=== PATIENT | male | born 1960 | race Hispanic/Latino ===

== ENCOUNTER 2016-07-07 09:18 | Outpatient (CLI) | payer MEDICAID ==
[2016-07-07 09:44] LABS: Hematocrit 34.5 % (35.5-45.6); Hemoglobin 11.9 gm/dl (11.8-15.2); Mean Corpuscular HGB Conc 34 % (32-34); Mean Corpuscular Hemoglobin 29 pg (28-32); Mean Corpuscular Volume 84 fl (84-94); Platelet Count 231 K/mm3 (140-440); Red Blood Count 4.11 M/mm3 (3.65-5.03); Red Cell Distribution Width 13.5 % (13.2-15.2); White Blood Count 6.4 K/mm3 (4.5-11.0)
[2016-07-07 10:25] LABS: Albumin 3.2 g/dL (3.9-5); Albumin/Globulin Ratio 1.2 %; BUN/Creatinine Ratio 11.45; Bilirubin,Total 0.3 mg/dL (0.1-1.2); Calcium 7.6 mg/dL (8.4-10.2); Total Protein 5.8 g/dL (6.3-8.2)
== END 2016-07-07 09:19 | disposition home or self-care (01) ==
LOC: LAB 09:18
DX: I12.9 Hypertensive chronic kidney disease with stage 1 through stage 4 chronic kidney disease, or unspecified chronic kidney disease (principal); N18.3 Chronic kidney disease, stage 3 (moderate); E10.22 Type 1 diabetes mellitus with diabetic chronic kidney disease; R80.0 Isolated proteinuria; E78.5 Hyperlipidemia, unspecified; E87.5 Hyperkalemia
CPT/HCPCS: 36415; 80053; 82565; 82570; 82575; 83970; 84156; 85027

== ENCOUNTER 2016-08-08 08:46 | Outpatient (CLI) | payer MEDICAID ==
[2016-08-08 09:18] LABS: Hematocrit 36.4 % (35.5-45.6); Hemoglobin 12.4 gm/dl (11.8-15.2); Mean Corpuscular HGB Conc 34 % (32-34); Mean Corpuscular Hemoglobin 29 pg (28-32); Mean Corpuscular Volume 84 fl (84-94); Platelet Count 241 K/mm3 (140-440); Red Blood Count 4.33 M/mm3 (3.65-5.03); Red Cell Distribution Width 13.4 % (13.2-15.2); White Blood Count 7.2 K/mm3 (4.5-11.0)
[2016-08-08 09:32] LABS: BUN/Creatinine Ratio 11.4; Calcium 8.2 mg/dL (8.4-10.2); Chloride 99.1 mmol/L (98-107); Phosphorous 5.9 mg/dL (2.5-4.5); Potassium 5.5 mmol/L (3.6-5.0)
== END 2016-08-08 08:47 | disposition home or self-care (01) ==
LOC: LAB 08:46
DX: I12.9 Hypertensive chronic kidney disease with stage 1 through stage 4 chronic kidney disease, or unspecified chronic kidney disease (principal); N18.3 Chronic kidney disease, stage 3 (moderate); E10.22 Type 1 diabetes mellitus with diabetic chronic kidney disease; R80.0 Isolated proteinuria; I25.10 Atherosclerotic heart disease of native coronary artery without angina pectoris; E88.09 Other disorders of plasma-protein metabolism, not elsewhere classified; E87.5 Hyperkalemia; Z79.4 Long term (current) use of insulin
CPT/HCPCS: 36415; 80048; 82040; 84100; 85027

== ENCOUNTER 2016-10-06 08:08 | Outpatient (CLI) | payer MEDICAID ==
[2016-10-06] MEDS ORDERED: XYLOCAINE TOPICAL 4% TP ONE ×2 (08:30→09:12)
== END 2016-10-06 08:09 | disposition home or self-care (01) ==
LOC: WOUND 08:08
PROVIDERS: ATTEND Internal Medicine
DX: E11.621 Type 2 diabetes mellitus with foot ulcer (principal); L97.521 Non-pressure chronic ulcer of other part of left foot limited to breakdown of skin; E11.22 Type 2 diabetes mellitus with diabetic chronic kidney disease; I12.0 Hypertensive chronic kidney disease with stage 5 chronic kidney disease or end stage renal disease; N18.6 End stage renal disease; E11.43 Type 2 diabetes mellitus with diabetic autonomic (poly)neuropathy; E78.2 Mixed hyperlipidemia; I25.10 Atherosclerotic heart disease of native coronary artery without angina pectoris; D50.8 Other iron deficiency anemias; K21.9 Gastro-esophageal reflux disease without esophagitis; Z99.2 Dependence on renal dialysis
CPT/HCPCS: 99205; G0463

== ENCOUNTER 2016-10-07 12:55 | Outpatient (CLI) | payer MEDICAID ==
[2016-10-07] MEDS ORDERED: XYLOCAINE TOPICAL 4% TP ONE (13:16)
[2016-10-07] MEDS ORDERED: XYLOCAINE 1%/ EPI 1:100,000 INFILTRATI ONE ×2 (13:23→14:36)
== END 2016-10-07 12:56 | disposition home or self-care (01) ==
LOC: WOUND 12:55
PROVIDERS: ATTEND Surgery
DX: E11.621 Type 2 diabetes mellitus with foot ulcer (principal); L97.521 Non-pressure chronic ulcer of other part of left foot limited to breakdown of skin; E11.22 Type 2 diabetes mellitus with diabetic chronic kidney disease; I12.0 Hypertensive chronic kidney disease with stage 5 chronic kidney disease or end stage renal disease; N18.6 End stage renal disease; I25.10 Atherosclerotic heart disease of native coronary artery without angina pectoris; D50.8 Other iron deficiency anemias; C44.719 Basal cell carcinoma of skin of left lower limb, including hip; E78.2 Mixed hyperlipidemia
CPT/HCPCS: 88305; 88307

== ENCOUNTER 2016-10-09 12:20 | Outpatient (CLI) | payer MEDICAID ==
[2016-10-09 12:31] LABS: Hematocrit 32.5 % (35.5-45.6); Hemoglobin 11.2 gm/dl (11.8-15.2); Mean Corpuscular HGB Conc 35 % (32-34); Mean Corpuscular Hemoglobin 29 pg (28-32); Mean Corpuscular Volume 85 fl (84-94); Platelet Count 235 K/mm3 (140-440); Red Blood Count 3.82 M/mm3 (3.65-5.03); Red Cell Distribution Width 13.4 % (13.2-15.2); White Blood Count 8.5 K/mm3 (4.5-11.0)
[2016-10-09 12:54] LABS: Albumin 3.5 g/dL (3.9-5); BUN/Creatinine Ratio 10.84; Calcium 8.2 mg/dL (8.4-10.2); Chloride 101.5 mmol/L (98-107); Phosphorous 7.8 mg/dL (2.5-4.5); Potassium 5.5 mmol/L (3.6-5.0)
== END 2016-10-09 12:21 | disposition home or self-care (01) ==
LOC: LAB 12:20
DX: I12.9 Hypertensive chronic kidney disease with stage 1 through stage 4 chronic kidney disease, or unspecified chronic kidney disease (principal); N18.3 Chronic kidney disease, stage 3 (moderate); E10.22 Type 1 diabetes mellitus with diabetic chronic kidney disease; I25.10 Atherosclerotic heart disease of native coronary artery without angina pectoris; E88.09 Other disorders of plasma-protein metabolism, not elsewhere classified; N25.81 Secondary hyperparathyroidism of renal origin; R80.0 Isolated proteinuria; E87.5 Hyperkalemia
CPT/HCPCS: 36415; 80048; 82040; 82043; 83970; 84100; 85027

== ENCOUNTER 2017-01-14 10:06 | Outpatient (CLI) | payer MEDICAID ==
[2017-01-14] MEDS ORDERED: XYLOCAINE TOPICAL 4% TP ONE (10:49)
== END 2017-01-14 10:07 | disposition home or self-care (01) ==
LOC: WOUND 10:06
PROVIDERS: ATTEND Surgery
DX: E11.621 Type 2 diabetes mellitus with foot ulcer (principal); L97.521 Non-pressure chronic ulcer of other part of left foot limited to breakdown of skin; I25.10 Atherosclerotic heart disease of native coronary artery without angina pectoris; E11.22 Type 2 diabetes mellitus with diabetic chronic kidney disease; I12.0 Hypertensive chronic kidney disease with stage 5 chronic kidney disease or end stage renal disease; N18.6 End stage renal disease

== ENCOUNTER 2017-02-04 07:59 | Outpatient (CLI) | payer MEDICAID | END 2017-02-04 08:00 | disposition home or self-care (01) | LOC: WOUND 07:59 | PROVIDERS: ATTEND Surgery | DX: E11.621 Type 2 diabetes mellitus with foot ulcer (principal); L97.521 Non-pressure chronic ulcer of other part of left foot limited to breakdown of skin; I25.10 Atherosclerotic heart disease of native coronary artery without angina pectoris; E11.22 Type 2 diabetes mellitus with diabetic chronic kidney disease; I12.0 Hypertensive chronic kidney disease with stage 5 chronic kidney disease or end stage renal disease; N18.6 End stage renal disease | CPT/HCPCS: 99214; G0463 ==

== ENCOUNTER 2017-03-23 07:47 | Day surgery (SDC) | payer MEDICAID ==
[~2017-03-23 07:47] MED LIST: HEPARIN 10,000 UNITS/10 ML ONE; MARCAINE 0.5% INFILTRATI ONE; NACL 0.9% 1000 ML 1,000 ML IV SCH; NACL 0.9% 500 ML 500 ML ONE; PROTAMINE SULFATE ONE; SODIUM BICARBONATE ONE; VANCOMYCIN/NS 1 GM/250 ML 1 GM/250 ML BAG IV NR; XYLOCAINE 1%/ EPI 1:100,000 INFILTRATI ONE
[2017-03-23 09:05] LABS: Basophils % (Auto) 0.6 % (0.0-1.8); Hematocrit 27.8 % (35.5-45.6); Hemoglobin 9.6 gm/dl (11.8-15.2); Mean Corpuscular HGB Conc 34 % (32-34); Mean Corpuscular Hemoglobin 29 pg (28-32); Mean Corpuscular Volume 85 fl (84-94); Platelet Count 201 K/mm3 (140-440); Red Blood Count 3.26 M/mm3 (3.65-5.03); Red Cell Distribution Width 14.3 % (13.2-15.2); White Blood Count 7.6 K/mm3 (4.5-11.0)
[2017-03-23 09:17] LABS: INR 1.09 (0.87-1.13)
[2017-03-23 09:23] LABS: Calcium 7.7 mg/dL (8.4-10.2); Potassium 4.8 mmol/L (3.6-5.0)
--- NOTE | 2017-03-23 09:57 | Anesthesia Consultation ---
Anesthesia Consult and Med Hx Date of service: 03/23/17 - Airway Anesthetic Teeth Evaluation: Good ROM Head & Neck: Adequate Mental/Hyoid Distance: Adequate Mallampati Class: Class I Intubation Access Assessment: Good - Pulmonary Exam CTA: Yes - Cardiac Exam Cardiac Exam: RRR - Pre-Operative Health Status ASA Pre-Surgery Classification: ASA4 Proposed Anesthetic Plan: General - Pulmonary SOB: Yes - Cardiovascular System Hx Hypertension: Yes Hx Coronary Artery Disease: Yes () Hx Heart Attack/AMI: Yes (2004) Hx Angina: No (denies chest pain and tightness) Hx Peripheral Vascular Disease: Yes - Central Nervous System Hx Psychiatric Problems: No - Endocrine Hx Renal Disease: Yes (Not yet on dialysis) Hx Non-Insulin Dependent Diabetes: Yes - Hematic Hx Anemia: Yes - Other Systems Hx Cancer: Yes (Basal cell CA removed from left foot) - Additional Comments Anesthesia Medical History Comments: Cardiology clearance on chart
--- NOTE | 2017-03-23 09:58 | Anesthesia Day of Surgery ---
Anesthesia Day of Surgery - Day of Surgery Patient Examined: Yes Patient H&P Reviewed: Yes Patient is NPO: Yes Beta Blockers: Yes (on schedule) Cardiac Clearance: Yes
[2017-03-23] MEDS ORDERED: VERSED IV NR (10:00)
[2017-03-23] MEDS ORDERED: XYLOCAINE MPF 2% ONE (10:16)
[2017-03-23] MEDS ORDERED: DIPRIVAN 10 MG/ML IV ONE ×2 (10:16→13:32)
[2017-03-23] MEDS ORDERED: SUBLIMAZE ONE (10:16)
[2017-03-23] MEDS ORDERED: PEPCID PO NR (11:00)
[2017-03-23] MEDS ORDERED: ePHEDrine SULFATE ONE (11:51)
[2017-03-23] MEDS ORDERED: HEPARIN 10,000 UNITS/10 ML IV ONE ×2 (12:00→13:30)
[2017-03-23] MEDS ORDERED: NACL 0.9% 500 ML IV ONE (12:00)
[2017-03-23] MEDS ORDERED: HEPARIN ONE (12:17)
[2017-03-23] MEDS ORDERED: NACL 0.9% 100 ML ONE (12:17)
[2017-03-23] MEDS ORDERED: XYLOCAINE 1%/ EPI 1:100,000 INFILTRATI ONE (13:39)
[2017-03-23] MEDS ORDERED: MARCAINE-EPI 0.5%-1:200,000 INFILTRATI ONE (13:39)
[2017-03-23] MEDS ORDERED: ZOFRAN ONE ×2 (14:22→15:16)
[2017-03-23] MEDS ORDERED: DECADRON ONE (14:25)
--- NOTE | 2017-03-23 14:39 | Operative Report ---
Operative Report Operative Report: Operative note: Date: 03/23/2017 Preoperative diagnosis: Renal failure requiring hemodialysis initiation Postoperative diagnosis: Same. Operation: creation of left brachiocephalic AV fistula Surgeon: Mirta Saha. Asst.: none Anesthesia: Gen. EBL: Minimal Findings:. patent brachial artery, no plaque Indications: 56-year-old gentleman with renal failure requiring initiation of hemodialysis with central orifice for initial placement and possible permacath. Patient's with given risks, benefits and alternatives of procedure and chose to proceed, signed informed consent. Operative details: The ultrasound was performed identifying cephalic vein. It was compressible is good size throughout its length. Timeout performed. Incision was made about 1 cm below elbow crease and horizontal fashion. Initially I dissected around cephalic vein mobilizing it. Brachial artery was dissected by dividing the biceps aponeurosis and taken vessel loops distally and proximally. Cephalic vein was transected distally and was ligated with sterile silk. It was irrigated with heparinized saline with olive-tipped syringe. Patient was heparinozed. Distal and proximal control of brachial artery was gained by vessel loops. Arteriotomy was created with 11 blade and extended with Martin scissors. Anastomosis was created was running 6-0 Prolene. When the artery was unclamped, there was identified good arterial pulse and thrill in the cephalic vein. Hemostasis was achieved with electrocautery and wound was closed in 2 layers with 3-0 Vicryl and 4-0 Monocryl. Dermabond glue applied. Needle and sponge counts were correct 2. Patient tolerated procedure well and was transferred to PACU in stable condition.
--- NOTE | 2017-03-23 14:44 | Short Stay Summary ---
Short Stay Documentation Date of service: 03/23/17 - History H&P: obtained from office - Allergies and Medications Current Medications: Allergies Penicillins Allergy (Verified 03/23/17 07:25) Unknown Home Medications Medication Instructions Recorded Confirmed Last Taken Type Aspirin [Lo-Dose Aspirin EC] 81 mg PO DAILY 03/20/17 03/23/17 03/21/17 23:00 History AtorvaSTATin [Lipitor] 40 mg PO QHS 03/20/17 03/23/17 03/21/17 23:00 History Furosemide [Lasix TAB] 40 mg PO QDAY 03/20/17 03/23/17 03/22/17 09:00 History Insulin Glargine,Hum.rec.anlog 17 units SQ HS 03/20/17 03/23/17 03/22/17 23:00 History [Lantus] Metoprolol [Lopressor TAB] 50 mg PO BID 03/20/17 03/23/17 03/22/17 23:00 History Sodium Bicarbonate 325 mg PO DAILY 03/20/17 03/23/17 03/22/17 23:00 History amLODIPine [Norvasc] 5 mg PO BID 03/20/17 03/23/17 03/22/17 23:00 History Active Medications Sodium Chloride (Nacl 0.9% 1000 Ml) 1,000 mls @ 42 mls/hr IV DIRECT SP Last Admin: 03/23/17 08:50 Dose: 42 mls/hr Vancomycin HCl (Vancomycin/Ns 1 Gm/250 Ml) 1 gm in 250 mls @ 166.667 mls/hr IV PREOP NR PRN Reason: Protocol Stop: 03/23/17 23:59 Last Admin: 03/23/17 11:15 Dose: 166.667 mls/hr Midazolam HCl (Versed) 2 mg IV PREOP NR Stop: 03/23/17 23:59 Last Admin: 03/23/17 10:53 Dose: 2 mg - Brief post op/procedure progress note Date of procedure: 03/23/17 Pre-op diagnosis: renal failure Post-op diagnosis: same Procedure: creation of left brachiocephalic AVF ultrasound guided right IJ access placement of right tunneled HD catheter Anesthesia: GETA Findings: patent brachial artery, no plaque patent right IJ Surgeon: CHANDLER GUTHRIE Estimated blood loss: minimal Pathology: none Condition: stable - Disposition Condition at discharge: Good Disposition: DC-01 TO HOME OR SELFCARE Short Stay Discharge Plan Diet: renal Wound: keep clean and dry Follow up with: KERRI FRANCES MD [Primary Care Provider] - 7 Days CHANDLER GUTHRIE DO [Staff Physician] - 14 Days Prescriptions: HYDROcodone/APAP 5-325 [[place] 5/325] 1 each PO Q4HR PRN #30 tablet PRN Reason: Pain
--- NOTE | 2017-03-23 14:49 | Operative Report ---
Operative Report Operative Report: Operative note: Date: 02/21/2017 Preoperative diagnosis: Renal failure Postoperative diagnosis: Same. Operation: Right internal jugular PermCath insertion Surgeon: Mirta Saha. Asst.: None Anesthesia: Gen. EBL: Minimal Indications: Renal failure requiring dialysis. Patient was discussed risks and benefits of procedure and chose to proceed, signed informed consent. Operative details: Patient was repositioned in the operating room after brachiocephalic fistula creation. His right neck was prepped and draped in sterile fashion. Timeout was performed and all team members in agreement. Under continuous ultrasound guidance right IJ was accessed with micropuncture needle, and exchanged to micropuncture catheter. J-wire was inserted under fluoroscopy guidance to SVC proximally. Small fransico was created with 11 blade around the wire and at the intended exit site for the catheter after infiltrating with 1% lidocaine. Intended tunnel for the catheter was also infiltrated with lidocaine. A clamp was used to dilate tract at the incisions. 23 cm PermCath catheter was tunneled toward the access site positioning the cuff just inside the exit incision. We dilated the access IJ site with 8 Andorran and 12 [place]ran dilators followed by the peel-away sheath. Wire and the introducer were removed and catheter was inserted in the peel-away sheath which was removed keeping the catheter in place. Fluoroscopy pictures showed good positioning with smooth turn over the catheter. Ports were flushed with heparinized saline and showed good flow followed by full strength heparin lock with 1.8 mL in each port. Patient tolerated procedure well. The was transferred to PACU in stable condition.
--- NOTE | 2017-03-23 14:52 | Post Anesthesia Evaluation ---
- Post Anesthesia Evaluation Patient Participated: Yes Airway Patent: Yes Stable Respiratory Function: Yes Temp > 96.8F: Yes Pain Manageable: Yes Adequeate Hydration: Yes Anesthesia Complications: No
--- NOTE | 2017-03-23 15:04 | Fluoroscopy Report ---
FLUOROSCOPY CENTRAL VENOUS DEVICE PLACEMENT History: Permacath insertion. Findings: A single fluoroscopic image of the precordial region was captured during insertion of a right internal jugular permacath by Dr. Saha. The distal tip of the permacath terminates in the superior right atrium. No pneumothorax is visualized on this limited image. If pneumothorax is suspected, AP chest x-ray is recommended. Impression: The right permacath terminates in the superior right atrium.
[2017-03-23] MEDS ORDERED: ZOFRAN IV PRN (15:11)
[2017-03-23] MEDS ORDERED: MARCAINE-EPI/PF 0.5%-1:200,000 INFILTRATI ONE (15:37)
[2017-03-23 18:42] VITALS: BP 132/63
== END 2017-03-23 17:07 | disposition home or self-care (01) ==
LOC: OR 07:47
PROVIDERS: ATTEND Surgery Vascular Surgery
DX: E11.22 Type 2 diabetes mellitus with diabetic chronic kidney disease (principal); N18.3 Chronic kidney disease, stage 3 (moderate); I10 Essential (primary) hypertension; I25.2 Old myocardial infarction; E11.51 Type 2 diabetes mellitus with diabetic peripheral angiopathy without gangrene; I25.10 Atherosclerotic heart disease of native coronary artery without angina pectoris; Z95.1 Presence of aortocoronary bypass graft; Z85.828 Personal history of other malignant neoplasm of skin
CPT/HCPCS: 36415; 36561; 77001; 80048; 82962; 85025; 85610; C1750; J1100; J1644; J2250; J2405; J2704; J3010; J3370; J7030; J7040; J1815; J2720

== ENCOUNTER 2017-03-27 12:45 | Outpatient (CLI) | payer MEDICAID ==
[2017-03-27 13:14] LABS: Hematocrit 29.8 % (35.5-45.6); Hemoglobin 9.7 gm/dl (11.8-15.2); Mean Corpuscular HGB Conc 33 % (32-34); Mean Corpuscular Hemoglobin 29 pg (28-32); Mean Corpuscular Volume 87 fl (84-94); Platelet Count 209 K/mm3 (140-440); Red Blood Count 3.41 M/mm3 (3.65-5.03); Red Cell Distribution Width 14.7 % (13.2-15.2); White Blood Count 7.6 K/mm3 (4.5-11.0)
[2017-03-27 13:37] LABS: Albumin 3.4 g/dL (3.9-5); Albumin/Globulin Ratio 1.3 %; Bilirubin,Total 0.2 mg/dL (0.1-1.2); Calcium 7.4 mg/dL (8.4-10.2)
== END 2017-03-27 12:46 | disposition home or self-care (01) ==
LOC: LAB 12:45
DX: I12.0 Hypertensive chronic kidney disease with stage 5 chronic kidney disease or end stage renal disease (principal); N18.5 Chronic kidney disease, stage 5; E10.22 Type 1 diabetes mellitus with diabetic chronic kidney disease; I25.10 Atherosclerotic heart disease of native coronary artery without angina pectoris; E87.5 Hyperkalemia; N25.81 Secondary hyperparathyroidism of renal origin; E78.5 Hyperlipidemia, unspecified; R80.0 Isolated proteinuria
CPT/HCPCS: 36415; 80053; 80074; 85027

== ENCOUNTER 2018-12-01 07:50 | Day surgery (SDC) | payer MEDICARE ==
[~2018-12-01 07:50] MED LIST changes: -HEPARIN 10,000 UNITS/10 ML ONE; -MARCAINE 0.5% INFILTRATI ONE; -NACL 0.9% 500 ML 500 ML ONE; -PROTAMINE SULFATE ONE; -SODIUM BICARBONATE ONE; +VANCOMYCIN 1,250 MG in NACL 0.9% 500 ML 500 ML IV ONE; -VANCOMYCIN/NS 1 GM/250 ML 1 GM/250 ML BAG IV NR; -XYLOCAINE 1%/ EPI 1:100,000 INFILTRATI ONE
[2018-12-01] MEDS ORDERED: VERSED IV NR (08:38)
--- NOTE | 2018-12-01 08:46 | Anesthesia Day of Surgery ---
Anesthesia Day of Surgery - Day of Surgery Patient Examined: Yes Patient H&P Reviewed: Yes Patient is NPO: Yes
--- NOTE | 2018-12-01 08:46 | Anesthesia Consultation ---
Anesthesia Consult and Med Hx Date of service: 12/01/18 - Airway Anesthetic Teeth Evaluation: Good ROM Head & Neck: Adequate Mental/Hyoid Distance: Adequate Mallampati Class: Class II Intubation Access Assessment: Good - Pulmonary Exam CTA: Yes - Cardiac Exam Cardiac Exam: RRR - Pre-Operative Health Status ASA Pre-Surgery Classification: ASA4 Proposed Anesthetic Plan: General (Pt with extensive cardiac hx -CABG 2004, PCI with stents , HTN , CHF, ESRD on HD last HD yesterday , GERD, DM for AV Graft/Fistula, explained to patient that he is at elevated risk. 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
[2018-12-01] MEDS ORDERED: ANCEF/STERILE WATER 2 GM/20 ML IV NR (09:00)
[2018-12-01 09:43] LABS: Basophils % (Auto) 0.4 % (0.0-1.8); Eosinophils # (Auto) 0.1 K/mm3 (0.0-0.4); Eosinophils % (Auto) 3.6 % (0.0-4.3); Hematocrit 33.2 % (35.5-45.6); Hemoglobin 11.5 gm/dl (11.8-15.2); Lymphocytes # (Auto) 0.6 K/mm3 (1.2-5.4); Lymphocytes % (Auto) 15.1 % (13.4-35.0); Mean Corpuscular HGB Conc 35 % (32-34); Mean Corpuscular Volume 97 fl (84-94); Monocytes # (Auto) 0.4 K/mm3 (0.0-0.8); Monocytes % (Auto) 9.9 % (0.0-7.3); Platelet Count 142 K/mm3 (140-440); Red Blood Count 3.41 M/mm3 (3.65-5.03); Red Cell Distribution Width 15.4 % (13.2-15.2)
[2018-12-01] MEDS ORDERED: MARCAINE 0.5% INFILTRATI ONE ×3 (10:02→12:09)
[2018-12-01] MEDS ORDERED: HEPARIN 10,000 UNITS/10 ML ONE (10:02)
[2018-12-01] MEDS ORDERED: NACL 0.9% 500 ML 500 ML ONE (10:02)
[2018-12-01] MEDS ORDERED: DIPRIVAN 10 MG/ML IV ONE (11:19)
[2018-12-01] MEDS ORDERED: SUBLIMAZE ONE (11:20)
[2018-12-01] MEDS ORDERED: HEPARIN 10,000 UNITS/10 ML IR ONE (12:10)
[2018-12-01] MEDS ORDERED: NACL 0.9% 500 ML IRRIGATION ONE (12:11)
[2018-12-01] MEDS ORDERED: NACL 0.9% IR ONE (12:12)
[2018-12-01] MEDS ORDERED: ZOFRAN ONE ×2 (13:37→14:27)
[2018-12-01] MEDS ORDERED: XYLOCAINE CARDIAC IV ONE (14:05)
[2018-12-01] MEDS ORDERED: XYLOCAINE MPF 2% ONE (14:06)
--- NOTE | 2018-12-01 14:06 | Operative Report ---
Operative Report Operative Report: Date of procedure: 12/01/2018 Pre-operative diagnosis: Thrombosed AV fistula, end-stage renal disease Post-operative diagnosis: Same Procedure name(s): Creation of left arm brachial artery to axillary vein hemodialysis shunt using 7 mm Artegraft Surgeon: Zack Bernal MD Technical Sales Consultant: Jesu Henderson PA-C Anesthesia: Gen. EBL: Minimal Specimen(s): None Complications: None Findings: Adequate size brachial artery, adequate size axillary vein, good thrill and bruit in the graft, softly palpable radial pulse at surgical completion Procedure: Patient in the supine position with the left arm extended the entire extremity is prepped and draped using standard sterile technique. Through anesthetized skin longitudinal incision was made over the brachial pulse just above the antecubital fossa and carried down through the subcutaneous tissue. The brachial artery was identified and mobilized for several centimeters and encircled using vessel loops. Attention was then turned to the axilla where again a longitudinal incision was made through anesthetized skin and carried down through subcutaneous tissue until the axillary vein was identified and mobilized for several centimeters. Attention was then again and turned to the brachial incision with artery was occluded and a longitudinal arteriotomy was then made. A 7 mm Artegraft was brought in the surgical field and an end to side anastomosis was then created using 6-0 Prolene suture and running technique. Prior to completion of the suture line antegrade and retrograde flushing was performed. Suture line was then completed, the graft controlled and flow was released back to the hand. A curved Evonne-Wick tunneling device was used to create a curvilinear subcutaneous tunnel from the axillary incision into the brachial incision. The graft was then attached and withdrawn in a nonrotational fashion. Axillary vein was then controlled and opened longitudinally and the graft was then trimmed to an appropriate length and configuration and sutured end to side fashion with 6-0 Prolene suture 4 needle technique. The graft was then released evacuating air. Flow was then released retrograde down the brachial vein and subsequently released to the shoulder. Hemostasis was excellent. Graft developed a very nice thrill and bruit. There was a soft radial pulse at the completion of the procedure. Hemostasis was adequate. The incisions were then blocked with Marcaine 0.5% plain and closed in layers using 3-0 Vicryl subcutaneous for Monocryl subcuticular. Skin was reapproximated with octylseal. Patient was then extubated and returned to the recovery room in stable condition having tolerated the procedure well. Sponge and needle counts were correct.
--- NOTE | 2018-12-01 14:12 | Short Stay Summary ---
Short Stay Documentation Date of service: 12/01/18 Narrative H&P: Admitted to the surgical suite for outpatient creation of a new AV access in his left arm after the old access has thrombosed - History H&P: obtained from office - Allergies and Medications Current Medications: Allergies No Known Allergies Allergy (Unverified 12/01/18 08:28) Home Medications Medication Instructions Recorded Confirmed Last Taken Type Aspirin [Lo-Dose Aspirin EC] 81 mg PO DAILY 03/20/17 11/02/18 11/29/18 History AtorvaSTATin [Lipitor] 40 mg PO QHS 03/20/17 11/02/18 11/30/18 History Insulin Glargine,Hum.rec.anlog 20 units SQ HS 03/20/17 11/02/18 11/30/18 History [Lantus] Metoprolol [Lopressor TAB] 50 mg PO BID 03/20/17 11/02/18 12/01/18 07:00 History Sodium Bicarbonate 650 mg PO DAILY 03/20/17 11/02/18 11/30/18 History Hydralazine HCl 50 mg PO DAILY 11/02/18 11/02/18 12/01/18 07:00 History Active Medications Sodium Chloride (Nacl 0.9% 1000 Ml) 1,000 mls @ 42 mls/hr IV DIRECT SP Last Admin: 12/01/18 09:05 Dose: 42 mls/hr Documented by: - Brief post op/procedure progress note Date of procedure: 12/01/18 Procedure: Pre-operative diagnosis: Thrombosed AV fistula, end-stage renal disease Post-operative diagnosis: Same Procedure name(s): Creation of left arm brachial artery to axillary vein hemodialysis shunt using 7 mm Artegraft Surgeon: Zack Bernal MD Treasury Assistant: Jesu Henderson PA-C Anesthesia: Gen. EBL: Minimal Specimen(s): None Complications: None Findings: Adequate size brachial artery, adequate size axillary vein, good thrill and bruit in the graft, softly palpable radial pulse at surgical completion Procedure: Patient in the supine position with the left arm extended the entire extremity is prepped and draped using standard sterile technique. Through anesthetized skin longitudinal incision was made over the brachial pulse just above the antecubital fossa and carried down through the subcutaneous tissue. The brachial artery was identified and mobilized for several centimeters and encircled using vessel loops. Attention was then turned to the axilla where again a longitudinal incision was made through anesthetized skin and carried down through subcutaneous tissue until the axillary vein was identified and mobilized for several centimeters. Attention was then again and turned to the brachial incision with artery was occluded and a longitudinal arteriotomy was then made. A 7 mm Artegraft was brought in the surgical field and an end to side anastomosis was then created using 6-0 Prolene suture and running technique. Prior to completion of the suture line antegrade and retrograde flushing was performed. Suture line was then completed, the graft controlled and flow was released back to the hand. A curved Evonne-Wick tunneling device was used to create a curvilinear subcutaneous tunnel from the axillary incision into the brachial incision. The graft was then attached and withdrawn in a nonrotational fashion. Axillary vein was then controlled and opened longitudinally and the graft was then trimmed to an appropriate length and configuration and sutured end to side fashion with 6-0 Prolene suture 4 needle technique. The graft was then released evacuating air. Flow was then released retrograde down the brachial vein and subsequently released to the shoulder. Hemostasis was excellent. Graft developed a very nice thrill and bruit. There was a soft radial pulse at the completion of the procedure. Hemostasis was adequate. The incisions were then blocked with Marcaine 0.5% plain and closed in layers using 3-0 Vicryl subcutaneous for Monocryl subcuticular. Skin was reapproximated with octylseal. Patient was then extubated and returned to the recovery room in stable condition having tolerated the procedure well. Sponge and needle counts were correct. 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
[2018-12-01] MEDS ORDERED: ZOFRAN IV ONE (14:28)
[2018-12-01] MEDS: DILAUDID IV PRN ×2 (14:40→15:00)
[2018-12-01] MEDS ORDERED: DILAUDID ONE (14:47)
--- NOTE | 2018-12-01 15:46 | Consultation ---
History of Present Illness Consult date: 12/01/18 Requesting physician: NISHI WHITFIELD Consult reason: chest pain History of present illness: The pt is a 58 YO male with a past medical history of CAD s/p CABG in 2004 and PCI after CABG, ESRD on HD, HTN, DM. He is regularly followed by [facility]. He presented today for scheduled dialysis graft placement and successfully un derwent the procedure. Post-operatively, he c/o chest pain and thus cardiology has been consulted. He describes his chest pain as a midsternal pressure which radiated into his upper back and arms. The pain was a 4/10 in severity. The pt received dilaudid and reports the chest pain is now resolved. He continues to have some back pain and nausea with dry heaving. Past History Past Medical History: CAD, diabetes, dialysis, ESRD, hypertension Past Surgical History: CABG Medications and Allergies Allergies Allergy/AdvReac Type Severity Reaction Status Date / Time No Known Allergies Allergy Unverified 12/01/18 08:28 Home Medications Medication Instructions Recorded Confirmed Last Taken Type Aspirin [Lo-Dose Aspirin EC] 81 mg PO DAILY 03/20/17 11/02/18 11/29/18 History AtorvaSTATin [Lipitor] 40 mg PO QHS 03/20/17 11/02/18 11/30/18 History Insulin Glargine,Hum.rec.anlog 20 units SQ HS 03/20/17 11/02/18 11/30/18 History [Lantus] Metoprolol [Lopressor TAB] 50 mg PO BID 03/20/17 11/02/18 12/01/18 07:00 History Sodium Bicarbonate 650 mg PO DAILY 03/20/17 11/02/18 11/30/18 History Hydralazine HCl 50 mg PO DAILY 11/02/18 11/02/18 12/01/18 07:00 History HYDROcodone/APAP 5-325 [[place] 1 each PO Q6HR PRN #25 tablet 12/01/18 Unknown Rx 5/325] Active Meds: Active Medications Hydromorphone HCl (Dilaudid) 0.5 mg IV Q10M PRN PRN Reason: Pain , Severe (7-10) Stop: 12/01/18 23:59 Last Admin: 12/01/18 15:00 Dose: 0.5 mg Documented by: Sodium Chloride (Nacl 0.9% 1000 Ml) 1,000 mls @ 42 mls/hr IV DIRECT SP Last Admin: 12/01/18 09:05 Dose: 42 mls/hr Documented by: Review of Systems Constitutional: no weight loss, no weight gain, no fever, no chills, no sweats Ears, nose, mouth and throat: no ear pain, no nose pain, no sinus pressure, no sinus pain Cardiovascular: chest pain, no orthopnea, no palpitations, no rapid/irregular heart beat, no edema, no syncope, no lightheadedness, no shortness of breath, no dyspnea on exertion Respiratory: no cough, no shortness of breath, no dyspnea on exertion, no congestion, no wheezing, no pain on inspiration Gastrointestinal: nausea, no abdominal pain, no vomiting, no diarrhea, no constipation, no change in bowel habits Genitourinary Male: no dysuria, no hematuria, no flank pain, no discharge, no urinary frequency, no urinary hesitancy Musculoskeletal: no neck pain Integumentary: no rash, no pruritis, no redness, no sores, no wounds Neurological: no head injury, no paralysis, no weakness, no parathesias, no numbness, no tingling, no seizures Psychiatric: no anxiety Endocrine: no cold intolerance, no heat intolerance Hematologic/Lymphatic: no easy bruising, no easy bleeding Allergic/Immunologic: no urticaria, no wheezing Physical Examination Vital Signs Temp Pulse Resp BP Pulse Ox 98.1 F 81 20 148/77 97 12/01/18 08:10 12/01/18 08:10 12/01/18 08:10 12/01/18 08:10 12/01/18 08:10 General appearance: no acute distress HEENT: Positive: PERRL, Normocephaly, Mucus Membranes Moist Neck: Positive: neck supple, trachea midline Cardiac: Positive: Reg Rate and Rhythm, S1/S2 Lungs: Positive: Decreased Breath Sounds Neuro: Positive: Grossly Intact Abdomen: Negative: Tender Musculoskeletal: No Pain Extremities: Absent: edema Results 12/01/18 09:05 12/01/18 09:05 CBC 12/01/18 Range/Units 09:05 WBC 3.8 L (4.5-11.0) K/mm3 RBC 3.41 L (3.65-5.03) M/mm3 Hgb 11.5 L (11.8-15.2) gm/dl Hct 33.2 L (35.5-45.6) % Plt Count 142 (140-440) K/mm3 Lymph # 0.6 L (1.2-5.4) K/mm3 [place] # 0.4 (0.0-0.8) K/mm3 Eos # 0.1 (0.0-0.4) K/mm3 Baso # 0.0 (0.0-0.1) K/mm3 Comprehensive Metabolic Panel 12/01/18 Range/Units 09:05 Sodium 138 (137-145) mmol/L Potassium 4.2 (3.6-5.0) mmol/L Chloride 99.5 (98-107) mmol/L Carbon Dioxide 22 (22-30) mmol/L BUN 28 H (9-20) mg/dL Creatinine 4.8 H (0.8-1.5) mg/dL Glucose 184 H (75-100) mg/dL Calcium 9.0 (8.4-10.2) mg/dL - Imaging and Cardiology EKG: report reviewed, image reviewed EKG interpretations - Telemetry EKG Rhythm: Sinus Rhythm - EKG Sinus rhythms and dysrhythmias: sinus rhythm Assessment and Plan Chest pain currently resolved. ECG with NAF. Recommend obtaining 2 sets of troponins and repeat ECG in 1 hour. If troponins negative for AMI and second ECG is unchanged and there is no reoccurrence of chest pain, pt may discharge from cardiology standpoint. If labwork or ECG is abnormal or chest pain reoccurs, recommend admission to telemetry per hospitalists. The patient has been seen in conjunction with Dr. Santiago who agrees with the assessment and plan of care. - Patient Problems (1) Chest pain Current Visit: Yes Status: Acute (2) CAD (coronary artery disease) Current Visit: Yes Status: Chronic (3) History of coronary artery bypass graft Current Visit: Yes Status: Chronic (4) Stented coronary artery Current Visit: Yes Status: Chronic (5) HTN (hypertension) Current Visit: Yes Status: Chronic (6) Diabetes Current Visit: Yes Status: Chronic (7) ESRD (end stage renal disease) on dialysis Current Visit: Yes Status: Chronic
[2018-12-01 17:34] LABS: Chol/HDL Ratio 1.91 %
[2018-12-01 20:08] VITALS: BP 152/66
== END 2018-12-01 07:51 | disposition home or self-care (01) ==
LOC: OR 07:50
PROVIDERS: ATTEND Surgery Vascular Surgery
DX: I13.2 Hypertensive heart and chronic kidney disease with heart failure and with stage 5 chronic kidney disease, or end stage renal disease (principal); E11.22 Type 2 diabetes mellitus with diabetic chronic kidney disease; N18.6 End stage renal disease; I25.10 Atherosclerotic heart disease of native coronary artery without angina pectoris; I25.2 Old myocardial infarction; E11.39 Type 2 diabetes mellitus with other diabetic ophthalmic complication; K21.9 Gastro-esophageal reflux disease without esophagitis; Z85.828 Personal history of other malignant neoplasm of skin; Z79.82 Long term (current) use of aspirin; Z79.84 Long term (current) use of oral hypoglycemic drugs; Z79.899 Other long term (current) drug therapy; Z98.890 Other specified postprocedural states; Z99.2 Dependence on renal dialysis; Z95.1 Presence of aortocoronary bypass graft; Z95.5 Presence of coronary angioplasty implant and graft; Z79.4 Long term (current) use of insulin; Z85.89 Personal history of malignant neoplasm of other organs and systems; Z98.41 Cataract extraction status, right eye; Z98.42 Cataract extraction status, left eye
CPT/HCPCS: 36415; 36830; 80048; 80061; 82962; 84484; 85025; 93005; 93010; C1768; J0690; J1170; J1644; J2250; J2405; J2704; J3010; J7030; J7040; J2001